=== PATIENT | male | born 1970 | race Caucasian/White ===

== ENCOUNTER 2018-07-18 18:10 | Emergency (ER) | payer MEDICARE, OTHER ==
[~2018-07-18] VITALS: Ht 175.3 cm; Wt 75.9 kg
[2018-07-18] MEDS ORDERED: NEOMYCIN/BACITRACIN/POLYMYXIN B OINTMENT PACKET TP ONE (21:00)
[2018-07-18 21:20] VITALS: BP 118/78
== END 2018-07-18 21:30 | disposition home or self-care (01) ==
LOC: EMS 18:12
DX: L55.1 Sunburn of second degree (principal); E11.9 Type 2 diabetes mellitus without complications; F20.9 Schizophrenia, unspecified; F31.9 Bipolar disorder, unspecified; Z59.0 Homelessness; Z88.0 Allergy status to penicillin

== ENCOUNTER 2018-08-09 02:08 | Emergency (ER) | payer MEDICARE, OTHER ==
[~2018-08-09] VITALS: Ht 182.9 cm; Wt 81.8 kg
[2018-08-09 04:45] VITALS: BP 130/81
== END 2018-08-09 05:15 | disposition home or self-care (01) ==
LOC: EMS 02:13
DX: F41.9 Anxiety disorder, unspecified (principal); F31.9 Bipolar disorder, unspecified; F20.9 Schizophrenia, unspecified; E11.9 Type 2 diabetes mellitus without complications; F17.210 Nicotine dependence, cigarettes, uncomplicated; Z59.0 Homelessness; Z88.0 Allergy status to penicillin

== ENCOUNTER 2019-01-09 12:45 | Inpatient (IN) | payer MEDICARE, MEDICAID ==
[~2019-01-09] VITALS: Ht 177.8 cm; Wt 71.3 kg
[2019-01-09] MEDS ORDERED: HALOPERIDOL LACTATE 5 MG/ML VIAL IM ONE (13:30)
[2019-01-09] MEDS ORDERED: DiphenhydrAMINE HCL 50 MG/ML VIAL IM ONE (13:30)
[2019-01-09] MEDS ORDERED: LORazepam 2 MG/ML VIAL IM ONE (13:30)
[2019-01-09] MEDS ORDERED: LORazepam 2 MG TABLET PO PRN (14:15)
[2019-01-09] MEDS ORDERED: ZOLPIDEM TARTRATE 10 MG TABLET PO PRN (14:15)
[2019-01-09] MEDS ORDERED: HALOPERIDOL 5 MG TABLET PO PRN (14:15)
[2019-01-09 17:09] VITALS: BP 102/73
[2019-01-09] MEDS ORDERED: INFLUENZA VIRUS VACCINE QVS 2019-20 (3YR+)/PF 60 MCG/0.5 ML SYRINGE IM ONE (20:15)
[2019-01-09] MEDS ORDERED: PNEUMOCOCCAL VACCINE POLYVALENT 0.5 ML VIAL [PPSV23] IM ONE (20:15)
[2019-01-09] MEDS ORDERED: MAG HYDROX/AL HYDROX/SIMETH ES 30 ML SUSPENSION UDCUP PO PRN (21:45)
[2019-01-09] MEDS ORDERED: ACETAMINOPHEN 325 MG TABLET PO PRN (21:45)
[2019-01-09] MEDS ORDERED: GuaiFENesin/D-METHORPHAN [SUGAR-FREE] 200-20MG/10 ML SYRUP UDCUP PO PRN (21:45)
[2019-01-09] MEDS ORDERED: LOPERAMIDE HCL 2 MG CAPSULE PO PRN (21:45)
[2019-01-09] MEDS ORDERED: MAGNESIUM HYDROXIDE SUSPENSION 30 ML UDCUP PO PRN (21:45)
[2019-01-09] MEDS ORDERED: NICOTINE 14 MG/24 HOUR PATCH TD PRN (21:45)
[2019-01-09] MEDS ORDERED: PETROLATUM,WHITE 28 GM JELLY TP PRN (21:45)
[2019-01-09] MEDS ORDERED: ONDANSETRON HCL 4 MG TABLET PO PRN (21:45)
[2019-01-09] MEDS ORDERED: ALBUTEROL SULFATE HFA 90 MCG/PUFF 8 GM INHALER IH PRN (21:45)
[2019-01-09] MEDS ORDERED: IBUPROFEN 400 MG TABLET PO PRN (21:45)
[2019-01-09] MEDS ORDERED: CloNIDine HCL 0.1 MG TABLET PO PRN (21:45)
[2019-01-09] MEDS ORDERED: DOCUSATE SODIUM 100 MG CAPSULE PO PRN (21:45)
[2019-01-10] MEDS ORDERED: OLANZapine 7.5 MG TABLET PO SCH (21:00)
[2019-01-11] MEDS: OLANZapine 5 MG RAPDIS TABLET PO SCH (20:16)
[2019-01-12] MEDS: OLANZapine 5 MG RAPDIS TABLET PO SCH (20:37)
[2019-01-13] MEDS: OLANZapine 5 MG RAPDIS TABLET PO SCH (20:06)
[2019-01-14] MEDS ORDERED: OLAN5TAB30 PO (17:46)
== END 2019-01-14 18:23 | disposition home or self-care (01) | DRG 885 ==
LOC: EMS 12:48 → B3A 15:20
DX: F25.0 Schizoaffective disorder, bipolar type (principal); K59.00 Constipation, unspecified; F17.210 Nicotine dependence, cigarettes, uncomplicated; R45.850 Homicidal ideations; E11.9 Type 2 diabetes mellitus without complications; Z88.0 Allergy status to penicillin; Z59.0 Homelessness
CPT/HCPCS: J1200; J1630; J2060

== ENCOUNTER 2019-08-25 12:32 | Emergency (ER) | payer MEDICAID, MEDICARE ==
[~2019-08-25] VITALS: Ht 172.7 cm; Wt 72.7 kg
[~2019-08-25 12:32] MED LIST: OLAN5TAB30 PO
[2019-08-25 12:34] VITALS: BP 116/74
== END 2019-08-25 13:52 | disposition left against medical advice (07) ==
LOC: EMS 12:32
DX: R45.851 Suicidal ideations (principal); Z53.21 Procedure and treatment not carried out due to patient leaving prior to being seen by health care provider